=== PATIENT | male | born 2000 | race American Indian/Alaskan Native ===

== ENCOUNTER 2019-05-03 13:01 | Emergency (ER) | payer MEDICAID ==
--- NOTE | 2019-05-03 14:04 | Event Note ---
ED Screening Note Date of service: 05/03/19 Time: 14:01 ED Screening Note: 18 y o male presents with new onset dx of anxiety was recently prescribed trazadone states cant sleep, cant focus, cc of heart palpations and heart racing no interest or appetite, in bed and jobless due to feelings denies SI/HI This initial assessment/diagnostic orders/clinical plan/treatment(s) is/are subject to change based on patients health status, clinical progression and re- assessment by fellow clinical providers in the ED. Further treatment and workup at subsequent clinical providers discretion. Patient/guardian urged not to elope from the ED as their condition may be serious if not clinically assessed and managed. Initial orders include: Med clearance
[2019-05-03 14:39] LABS: Bilirubin,Urine NEG (Negative); Blood,Urine NEG (Negative); Color,Urine Yellow (Yellow); Mucus,Urine 3+ /HPF
[2019-05-03 14:45] LABS: Amphetamine Screen,Urine PRESUMPTIVE NEGATIVE; Benzodiazepines Screen,Urine PRESUMPTIVE NEGATIVE; Cocaine Screen,Urine PRESUMPTIVE NEGATIVE; Methadone Screen,Urine PRESUMPTIVE NEGATIVE; Opiate Screen,Urine PRESUMPTIVE NEGATIVE
[2019-05-03 14:57] LABS: Cannabinoid Screen,Urine PRESUMPTIVE POSITIVE
[2019-05-03 15:32] LABS: Basophils # (Auto) 0.1 K/mm3 (0.0-0.1); Basophils % (Auto) 0.9 % (0.0-1.8); Eosinophils # (Auto) 0.1 K/mm3 (0.0-0.4); Eosinophils % (Auto) 0.7 % (0.0-4.3); Hematocrit 41.5 % (35.5-45.6); Lymphocytes % (Auto) 25.9 % (13.4-35.0); Mean Corpuscular HGB Conc 34 % (32-34); Mean Corpuscular Volume 82 fl (84-94); Monocytes # (Auto) 0.5 K/mm3 (0.0-0.8); Monocytes % (Auto) 6.5 % (0.0-7.3); Platelet Count 248 K/mm3 (140-440); Red Blood Count 5.07 M/mm3 (3.65-5.03)
[2019-05-03 15:57] LABS: BUN/Creatinine Ratio 11; Blood Urea Nitrogen 10 mg/dL (9-20); Calcium 9.8 mg/dL (8.4-10.2); Hemolysis Index 4
[2019-05-03 21:31] VITALS: BP 98/53
== END 2019-05-03 21:40 | disposition home or self-care (01) ==
LOC: ED 13:01
DX: F41.9 Anxiety disorder, unspecified (principal)
CPT/HCPCS: 36415; 80048; 80307; 81001; 85025

== ENCOUNTER 2019-05-10 10:37 | Emergency (ER) | payer MEDICAID ==
[2019-05-10 10:53] VITALS: BP 108/61
--- NOTE | 2019-05-10 11:38 | Emergency Department Report ---
Chief Complaint: Medical Clearance Stated Complaint: MED REFILL/CANT SEE PCP Time Seen by Provider: 05/10/19 11:38 - HPI History of Present Illness: pt states that he has anxiety states that he has been having anxiety attacks states that he did not sleep last night denies any SI/HI no hallucinations states he takes ativan and benadryl states he has an appt with his PCP on 05/13/2019 vitals are normal pt is non toxic appearing, no acute distress looked pt up in the [facility] aware, he was given a 12 day supply of ativan which should last until 05/15/2019 so the patient should not be requesting a refill at this time discussed the addictive properties of ativan, discussed that we could not fill this prescription from the emergency department, advised this is not the first line tx for ativan, discussed psychotherapy, meditation, coping mechanism, etc pt referred to outpatient psych and primary care he is having no SI, no HI, no acute psychosis, no hallucinations pt is presenting with a non medical emergency at this time, there is no threat to life or limb at this time pt given the appropriate resources discussed with pt and pts father strict return precautions, and to return immediately for any SI or HI - Exam Vital Signs: Vital Signs 05/10/19 10:49 Temperature 98 F Pulse Rate 89 Respiratory 18 Rate Blood Pressure 108/61 O2 Sat by Pulse 100 Oximetry MSE screening note: Focused history and physical exam performed. ED Disposition for MSE Clinical Impression: Anxiety Insomnia Qualifiers: Insomnia type: unspecified Qualified Code(s): G47.00 - Insomnia, unspecified Disposition: Z-07 MED SCREENING EXAM-LEFT Is pt being admited?: No Does the pt Need Aspirin: No Condition: Stable Instructions: Anxiety (ED) Additional Instructions: please follow up with your primary care doctor and psychiatrist. return to the emergency room immediately for any new or worsening symptoms. return immediately if begin feeling thoughts of wanting to hurt yourself or others. please use coping mechanisms, watch videos, meditation. Referrals: [facility] [Outside] - 2-3 Days Time of Disposition: 11:47 Print Language: THAI
== END 2019-05-10 12:33 | disposition left against medical advice (07) ==
LOC: ED 10:37
DX: F41.9 Anxiety disorder, unspecified (principal); G47.00 Insomnia, unspecified
CPT/HCPCS: 99281